=== PATIENT | female | born 1990 | race Hispanic/Latino ===

== ENCOUNTER 2023-10-15 19:31 | Emergency (ER) | payer SELFPAY ==
[2023-10-15 19:36] VITALS: BP 111/59; PULSE 114; RESP 20; TEMP 37.1; O2SAT 95; BMI 17.3
--- NOTE | 2023-10-15 20:02 | EX.ED.DYSGE1 ---
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 She states over the last 2 months she has had a cough but over the last 3 days it worsened and she developed a fever and shortness of breath. She went to a clinic yesterday and was told she had pneumonia and prescribed a medication which she states did not help. She reports she is 2 months . She is not established with any type of doctor and takes no daily medications. She denies smoking history. She denies sick contacts. PFSH <VANDANA Sepulveda - Last Filed: 10/15/23 22:03> [facility] Medical History no medical history Home Medications ?Medication ?Instructions ?Recorded ?Last Taken ?Type albuterol sulfate 90 mcg/actuation 1 - 2 puff inhalation Q4H PRN PRN 10/15/23 Unknown Rx aerosol inhaler (Ventolin HFA) Wheezing 30 days #6.7 grams azithromycin 250 mg tablet 250 mg PO DAILY 4 days #4 tabs 10/15/23 Unknown Rx (Zithromax) Allergy/AdvReac Type Severity Reaction Status Date / Time No Known Allergies Allergy Verified 10/15/23 19:35 Family History no significant family his Surgical History no surgical history Social History Smoking Status: Never smoker ROS <VANDANA Sepulveda - Last Filed: 10/15/23 22:03> ROS ED ROS Narrative Constitutional: Positive for fever. CVS: Negative for chest pain. Respiratory: Positive for shortness of breath, cough. GI: Negative for abdominal pain. : Negative for dysuria. EXAM <VANDANA Sepulveda - Last Filed: 10/15/23 22:03> Physical Exam Narrative Exam Narrative: CONST: Patient sitting in no acute distress. EYES: Normal inspection. NECK: Normal inspection. RESP: Breathing approximately 24 times a minute, speaking full sentences, faint expiratory wheeze left lower lobe. CVS: Regular rate and rhythm, no murmur, no gallop. ABD: Soft and nontender, no guarding or rebound. SKIN: Color normal, no rash, warm, dry, intact. EXTREMITIES: Normal appearance, no pedal edema. NEURO: Alert and answering questions appropriately. PSYCH: Normal affect. Const Vital Signs: 10/15/23 19:36 10/15/23 20:01 10/15/23 20:08 Temperature 98.7 F 98 F Temperature Source Temporal Oral Pulse Rate 114 H 88 Respiratory Rate 20 H 18 Respiratory Effort Normal Respiratory Pattern Normal Blood Pressure 111/59 L 92/57 L Blood Pressure Mean 76 68 Pulse Ox 95 99 Oxygen Delivery Method Room Air Room Air 10/15/23 20:17 Temperature Temperature Source Pulse Rate 116 H Respiratory Rate 24 H Respiratory Effort Respiratory Pattern Tachypnea Blood Pressure Blood Pressure Mean Pulse Ox Oxygen Delivery Method <Dr. Marcos Vila MD - Last Filed: 10/15/23 21:42> Physical Exam Const Vital Signs: 10/15/23 19:36 10/15/23 20:01 10/15/23 20:08 Temperature 98.7 F 98 F Temperature Source Temporal Oral Pulse Rate 114 H 88 Respiratory Rate 20 H 18 Respiratory Effort Normal Respiratory Pattern Normal Blood Pressure 111/59 L 92/57 L Blood Pressure Mean 76 68 Pulse Ox 95 99 Oxygen Delivery Method Room Air Room Air 10/15/23 20:17 Temperature Temperature Source Pulse Rate 116 H Respiratory Rate 24 H Respiratory Effort Respiratory Pattern Tachypnea Blood Pressure Blood Pressure Mean Pulse Ox Oxygen Delivery Method MDM <VANDANA Sepulveda - Last Filed: 10/15/23 22:03> [facility] Narrative Medical decision making narrative: History gathered from: Patient, [place] 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 She appears well and nontoxic. Vital signs are stable. During my exam she was mildly tachypneic around 24/minute. With a faint left lower lobe expiratory wheeze which resolved after coughing. 2 view chest x-ray shows bilateral patchy pneumonia and viral swab is negative for COVID/flu/RSV. After a DuoNeb treatment she is feeling improved. I prescribed a Z-Bubba and albuterol inhaler and first dose of antibiotic was given here. I thoroughly discussed return precautions. I provided follow-up with [facility] as she states she is early in . She was discharged in stable condition. Radiography Diagnostic Testing: Clinical Impression(s) from Imaging Studies Chest X-Ray 10/15/23 21:04 IMPRESSION: Bilateral pneumonia. Electronically Signed: Christina Tolbert MD at 21:58 EDT Reading Location ID and State: [id number] / Tel , Service support , ED attending interpretation of 2 view chest x-ray shows bilateral patchy pneumonia. <Dr. Marcos Vila MD - Last Filed: 10/15/23 21:42> MDM Radiography Diagnostic Testing: Clinical Impression(s) from Imaging Studies Chest X-Ray 10/15/23 21:04 IMPRESSION: Bilateral pneumonia. Electronically Signed: Christina Tolbert MD at 21:58 EDT Reading Location ID and State: [id number] / Tel , Service support , Treatment and Re-Evaluation Comments:: I have personally performed a face to face assessment of the patient and have reviewed the JOLANTA Note. I performed a substantive portion of the visit including all aspects of the following. My bello findings include: History is patient has been coughing for over a month but she has been worse in the past 3 days with some dyspnea and fevers. Her right ear is bothering her and her throat a little. 2 months . No abdominal pain or dysuria but she does have some mild stress incontinence when she coughs just since she has been . Exam is well-appearing, no respiratory distress. TMs normal bilaterally. Throat unremarkable. No cervical lymphadenopathy. Some rales in the left base but otherwise lungs clear. Medical Decison Making chest x-ray 2 views on my interpretation appears to show a patchy atypical pneumonia more so on the left base may be some on the right as well. Viral swab is negative. We are going to cover with antibiotics we do not know what she was prescribed or given yesterday, but she was notified that the antibiotic may take some time to work. Her oxygenation is good and she is not septic appearing, vitals have been stable with mild tachycardia, but being 8-10 weeks , this is not far off from normal. Outpatient treatment for atypicals reasonable, will give her a Z-Bubba and advise close outpatient follow-up. Referred to [facility] on for unassigned, Dr. Rajput. Other additions or changes: [None] Discharge Plan Triage Chief Complaint: Fever ED Midlevel Provider: Lela Campa ED Provider: Marcos Vila Dx/Rx/DC Orders Clinical Impression: Bilateral pneumonia Instructions: ED Pneumonia (Adult) Prescriptions: New azithromycin [Zithromax] 250 mg tablet 250 mg PO DAILY 4 Days Qty: 4 0RF Rx Instructions: start on day 2 of therapy albuterol sulfate [Ventolin HFA] 90 mcg/actuation HFA aerosol inhaler 1 - 2 puff inhalation Q4H PRN PRN (Reason: Wheezing) 30 Days Qty: 6.7 0RF Primary Care Provider: Care Physician,No Primary Referrals: Chantelle Rajput MD [Med Staff - Active Staff] - Care Physician,No Primary [Primary Care Provider] - Activity Restrictions/Additional Instructions: Take antibiotics for pneumonia. I recommend you follow-up with an [facility] for care for your . Los antibioticos pueden tardar algun tiempo en curar aguilar neumonia. Joaquim un seguimiento con el medico para comprobar el oxigeno. Print Language: [place] Disposition Disposition: Home, Self Care
[2023-10-15 20:08] VITALS: BP 92/57; PULSE 88; RESP 18; TEMP 36.6; O2SAT 99
[2023-10-15] MEDS: Ipratropium/Albuterol Sulfate 3 ML AMPUL.NEB INHALATION (20:14)
[2023-10-15 20:17] VITALS: PULSE 116; RESP 24
--- NOTE | 2023-10-15 21:04 | RAD_ITS ---
INDICATION: cough EXAMINATION/TECHNIQUE: X-RAY - XR Chest 2 Views COMPARISON: FINDINGS: LINES/DEVICES: None. LUNGS: Bilateral patchy consolidation consistent with pneumonia. MEDIASTINUM AND CARDIOVASCULAR STRUCTURES: Cardiac silhouette not enlarged. Central airways and mediastinal contour are unremarkable. BONES AND SOFT TISSUES: Unremarkable. RAD/Chest PA and Lateral IMPRESSION: Bilateral pneumonia. Electronically Signed: Christina Tolbert MD at 21:58 EDT Reading Location ID and State: [id number] / Tel , Service support ,
[2023-10-15 22:05] VITALS: BP 91/64; PULSE 100; PULSE 101; RESP 16; TEMP 37.1; O2SAT 95; O2SAT 96
[2023-10-15] MEDS: Azithromycin 250 MG Tablet 500 MG PO (22:34)
== END 2023-10-15 22:34 | disposition home or self-care (01) ==
PROVIDERS: Emergency Provider Emergency Medicine; Visit Provider Emergency Medicine
DX: J18.9 Pneumonia, unspecified organism (principal)
CPT/HCPCS: 71046; 87631; 94640; 99282